=== PATIENT | female | born 1985 | race Caucasian/White ===

== ENCOUNTER 2018-09-18 08:11 | Day surgery (SDC) | payer MEDICAID ==
[2018-09-13 12:14] LABS: CLARITY,URINE CLEAR (Clear); COLOR,URINE STRAW (Yellow); GLUCOSE, URINE NEGATIVE (Neg); KETONES,URINE NEGATIVE (Neg); LEUKOCYTE ESTERASE ,URINE NEGATIVE (Neg); NITRITES, URINE NEGATIVE (Neg); OCCULT BLOOD,URINE NEGATIVE (Neg); PROTEIN,URINE NEGATIVE (Neg); UROBILINOGEN,URINE 0.2 E.U/dL (0.2-1.0)
[2018-09-13 12:16] LABS: BASOPHILS % (AUTO) 0.2 % (0-1); EOSINOPHILS # (AUTO) 0.1 X10'3 (0-0.9); EOSINOPHILS % (AUTO) 2.1 % (0-6); LYMPHOCYTES # (AUTO) 1.4 X10'3 (1.1-4.8); LYMPHOCYTES % (AUTO) 35.7 % (21-51); MEAN CORPUSCULAR HEMOGLOBIN 30.1 PG (27.0-31.0); MEAN CORPUSCULAR HGB CONC 33.2 g/dL (33.0-36.5); MEAN CORPUSCULAR VOLUME 90.5 FL (78-98); MEAN PLATELET VOLUME 8.3 FL (7.4-10.4); MONOCYTES # (AUTO) 0.2 X10'3 (0-0.9); MONOCYTES % (AUTO) 5.4 % (2-12); NEUTROPHILS # (AUTO) 2.2 X10'3 (1.8-7.7); NEUTROPHILS % (AUTO) 56.6 % (42-75); PRE OP HEMATOCRIT 41.6 % (35.0-45.0); PRE OP HEMOGLOBIN 13.8 g/dL (12.0-16.0); PRE OP PLATELET COUNT 199 X10'3 (140-440); RED CELL DISTRIBUTION WIDTH 13.9 % (11.5-14.5)
[2018-09-13 12:23] LABS: UA COLLECTION TYPE CLN CATCH MIDSTREAM
[2018-09-13 12:38] LABS: ALBUMIN 3.8 G/DL (3.4-5.0); ALBUMIN/GLOBULIN RATIO 1.2 (1.1-1.5); ALKALINE PHOSPHATASE 57 IU/L (46-116); BLOOD UREA NITROGEN 10 MG/DL (7-18); BUN/CREATININE RATIO 15.9 (6.6-38.0); CALCIUM 8.6 MG/DL (8.5-10.1); CHLORIDE 104 MMOL/L (99-107); CREATININE 0.63 MG/DL (0.40-0.90); PRE OP ALT 17 U/L (30-65); PRE OP ANION GAP 10 (8-16); PRE OP AST 8 U/L (10-37); PRE OP BILIRUB, TOTAL 0.2 MG/DL (0.0-1.0); PRE OP GLUCOSE 90 MG/DL (70-104); PRE OP SODIUM 138 MMOL/L (135-145); TOTAL CARBON DIOXIDE 24.4 MMOL/L (24-32); TOTAL PROTEIN 7.1 G/DL (6.4-8.2); eGFR > 90 ML/MIN
[2018-09-13 13:09] LABS: HCG SERUM QL NEGATIVE
[~2018-09-18] VITALS: Ht 170.2 cm; Wt 77.1 kg
[2018-09-18] VITALS (9 sets, daily range): BP systolic 111–136; BP diastolic 66–87
[~2018-09-18 08:11] MED LIST: ALPR0.5T8 PO; BIOT1POW2 PO; CETI-102 PO; CHOL100046 PO; HYDR-3973 PO; HYDR-4353 PO; LEVO175T7 PO; VITA-135 PO; ceFOXitin 2 GM ADDvantage bag 100 ML IV ONE; cefotetan 2gm/isosm dext IVPB 50 ML IV ONE; famotidine 20mg tablet PO ONE; ringers solution, lacted 1,000 ML IV SCH
[2018-09-18] MEDS ORDERED: LIDOcaine 1% (10mg/ml) 2ml vial ONE (08:22)
[2018-09-18] MEDS ORDERED: BUPIVAcaine/PF 2.5mg/ml (0.25%) 10ml vial ONE (08:34)
[2018-09-18] MEDS ORDERED: epiNEPHrine 1 mg/ml inj ONE (08:34)
[2018-09-18] MEDS ORDERED: neostigmine methylsulfate 1 MG/ML 10ml vial ONE (09:48)
[2018-09-18] MEDS ORDERED: sevoflurane 250ml liquid IH ONE (09:48)
[2018-09-18] MEDS ORDERED: glycopyrrolate 0.2mg/ml inj ONE (09:48)
[2018-09-18] MEDS ORDERED: fentaNYL/PF 50MCG/1 ML 2ML syringe ONE (09:57)
[2018-09-18] MEDS ORDERED: midazolam 2 mg/2 ml injection ONE (09:57)
[2018-09-18] MEDS ORDERED: rocuronium 10mg/ml inj IV ONE (10:00)
[2018-09-18] MEDS ORDERED: etomidate 2mg/ml inj. ONE (10:00)
[2018-09-18] MEDS ORDERED: ondansetron/PF 4mg/2ml inj ONE (10:04)
[2018-09-18] MEDS ORDERED: dexamethasone sod phosphate 4mg/ml inj. ONE (10:05)
[2018-09-18] MEDS ORDERED: ringers solution, lacted 1,000 ML IV SCH (10:32)
[2018-09-18] MEDS ORDERED: proCHLORperazine 10 MG/2 ml inj IV PRN (10:35)
[2018-09-18] MEDS ORDERED: hydrALAZINE 20mg/ml inj. IV PRN (10:35)
[2018-09-18] MEDS ORDERED: morphine 4 MG/ML inj SYRINge IV PRN ×2 (10:35)
[2018-09-18] MEDS ORDERED: enalaprilat dihydrate 2.5mg/2ml vial IV PRN (10:35)
[2018-09-18] MEDS ORDERED: fentaNYL/PF 50MCG/1 ML 2ML syringe IV PRN (10:35)
[2018-09-18] MEDS ORDERED: ondansetron/PF 4mg/2ml inj IV PRN (10:35)
[2018-09-18] MEDS ORDERED: proMETHazine 25mg rectal suppository RC PRN (10:35)
[2018-09-18] MEDS ORDERED: labetalol 20mg/4ml (5mg/ml) syringe IV ONE (10:48)
[2018-09-18] MEDS ORDERED: methylene blue (5mg/ml) 50mg/10ml ampul IV ONE (10:56)
--- NOTE | 2018-09-18 11:25 | NUR ---
Received from OR via BED, accompanied by Anesthesiologist DR ANDRES--- and report given by Anesthesiolgist. PATIENT A&OX4, DENIES PAIN, V/S WNL, NEUROVASCULAR CHECKS INTACT, 20G PIV, SCD ON, 2 DUODERM BONDED LAP SITES CDI TO ABDOMEN AND PERIPAD WITH SCANT OUTPUT
[2018-09-18] MEDS: fentaNYL/PF 50MCG/1 ML 2ML syringe IV PRN ×2 (11:43→11:47)
[2018-09-18] MEDS ORDERED: HYDROcodone/acetaminophen 10/325mg tab PO ONE (12:05)
--- NOTE | 2018-09-18 12:35 | NUR ---
Received from OR via BED, accompanied by Anesthesiologist DR LOVE-- and report given by Anesthesiolgist. PATIENT A&OX4, DENIES PAIN, V/S WNL, NEUROVASCULAR CHECKS INTACT, 20G PIV D/C, SCD OFF, DRESSING CDI.. I HAVE REVIEWED D/C INSTRUCTIONS WITH PATIENT AND FAMILY AND THEY HAVE VERBALIZED UNDERSTANDING. PATIENT D/C HOME WITH ALL BELONGINGS AND FAMILY GAVE TRANSPORT HOME.
== END 2018-09-18 12:35 | disposition home or self-care (01) ==
LOC: PAS 08:11
PROVIDERS: ATTEND Obstetrics & Gynecology Obstetrics
DX: D17.1 Benign lipomatous neoplasm of skin and subcutaneous tissue of trunk (principal); N83.8 Other noninflammatory disorders of ovary, fallopian tube and broad ligament; D64.9 Anemia, unspecified; I50.9 Heart failure, unspecified; E05.90 Thyrotoxicosis, unspecified without thyrotoxic crisis or storm; F41.9 Anxiety disorder, unspecified; Z79.899 Other long term (current) drug therapy; Z88.8 Allergy status to other drugs, medicaments and biological substances; Z98.890 Other specified postprocedural states; Z82.49 Family history of ischemic heart disease and other diseases of the circulatory system
CPT/HCPCS: 22900; 36415; 58350; 58662; 80053; 81003; 82948; 84703; 85025; 86885; 86900; 86901; 93005; J0171; J1100; J2250; J2270; J2405; J2710; J3010; J3490; J7120; A7000; J0694

== ENCOUNTER 2018-10-01 21:38 | Emergency (ER) | payer MEDICAID ==
[~2018-10-01] VITALS: Ht 170.2 cm; Wt 75.0 kg
[~2018-10-01 21:38] MED LIST changes: -ceFOXitin 2 GM ADDvantage bag 100 ML IV ONE; -cefotetan 2gm/isosm dext IVPB 50 ML IV ONE; -famotidine 20mg tablet PO ONE; -ringers solution, lacted 1,000 ML IV SCH
[2018-10-01] MEDS ORDERED: morphine 4 MG/ML inj SYRINge IV PRN (22:00)
[2018-10-01] MEDS ORDERED: normal saline 1000ML IV soln IVB ONE (22:00)
[2018-10-01] MEDS ORDERED: ondansetron/PF 4mg/2ml inj IV ONE (22:00)
[2018-10-01] MEDS ORDERED: iohexol 300mg/ml 100ml inj. ONE (22:06)
[2018-10-01 22:28] LABS: BASOPHILS % (AUTO) 0.1 % (0-1); EOSINOPHILS # (AUTO) 0.2 X10'3 (0-0.9); EOSINOPHILS % (AUTO) 3.1 % (0-6); HEMATOCRIT 42.4 % (35.0-45.0); HEMOGLOBIN 14.6 g/dl (12.0-16.0); LYMPHOCYTES # (AUTO) 2.8 X10'3 (1.1-4.8); LYMPHOCYTES % (AUTO) 46.7 % (21-51); MEAN CORPUSCULAR HEMOGLOBIN 30.5 PG (27.0-31.0); MEAN CORPUSCULAR HGB CONC 34.4 g/dL (33.0-36.5); MEAN CORPUSCULAR VOLUME 88.7 FL (78-98); MEAN PLATELET VOLUME 8.5 FL (7.4-10.4); MONOCYTES # (AUTO) 0.4 X10'3 (0-0.9); MONOCYTES % (AUTO) 6.2 % (2-12); NEUTROPHILS # (AUTO) 2.6 X10'3 (1.8-7.7); NEUTROPHILS % (AUTO) 43.9 % (42-75); PLATELET COUNT 237 X10'3 (140-440); RED BLOOD COUNT 4.78 X10'6 (4.20-5.60); RED CELL DISTRIBUTION WIDTH 13.3 % (11.5-14.5); WHITE BLOOD COUNT 5.9 X10'3 (4.5-11.0)
[2018-10-01 22:39] LABS: ALANINE AMINOTRANSFERASE 15 U/L (12-78); ALBUMIN 4.2 G/DL (3.4-5.0); ALBUMIN/GLOBULIN RATIO 1.3 (1.1-1.5); ALKALINE PHOSPHATASE 64 IU/L (46-116); ANION GAP 8 (8-16); ASPARTATE AMINO TRANSFERASE 9 U/L (10-37); BILIRUBIN,TOTAL 0.5 MG/DL (0.1-1.0); BLOOD UREA NITROGEN 7 MG/DL (7-18); BUN/CREATININE RATIO 9.9 (6.6-38.0); CALCIUM 8.9 MG/DL (8.5-10.1); CHLORIDE 104 MMOL/L (99-107); CREATININE 0.71 MG/DL (0.40-0.90); GLUCOSE 85 MG/DL (70-104); LIPASE 80 U/L (73-393); POTASSIUM 3.7 MMOL/L (3.5-5.1); SODIUM 138 MMOL/L (135-145); TOTAL CARBON DIOXIDE 26.4 MMOL/L (24-32); TOTAL PROTEIN 7.4 G/DL (6.4-8.2); eGFR > 90 ML/MIN
[2018-10-01 23:10] LABS: CLARITY,URINE CLEAR (Clear); COLOR,URINE YELLOW (Yellow); GLUCOSE, URINE NEGATIVE (Neg); KETONES,URINE NEGATIVE (Neg); LEUKOCYTE ESTERASE ,URINE NEGATIVE (Neg); NITRITES, URINE NEGATIVE (Neg); OCCULT BLOOD,URINE NEGATIVE (Neg); PH,URINE 6.5 (4.8-8.0); PROTEIN,URINE NEGATIVE (Neg); UROBILINOGEN,URINE 0.2 E.U/dL (0.2-1.0)
[2018-10-01 23:11] LABS: UA COLLECTION TYPE CLN CATCH MIDSTREAM
[2018-10-01 23:12] LABS: URINE HCG NEGATIVE (NEG)
[2018-10-01 23:31] LABS: URINE AMPHETAMINE SCREEN NEGATIVE (Neg); URINE BARBITUATE SCREEN NEGATIVE (Neg); URINE BENZODIAZEPINES SCREEN NEGATIVE (Neg); URINE CANNABINOID SCREEN POSITIVE (Neg); URINE COCAINE SCREEN NEGATIVE (Neg); URINE METHADONE SCREEN NEGATIVE (Neg); URINE OPIATE SCREEN POSITIVE (Neg); URINE PHENCYCLIDINE SCREEN NEGATIVE (Neg)
[2018-10-02] MEDS ORDERED: ketorolac trometh. 30mg/ml inj. IV ONE
[2018-10-02 00:41] VITALS: BP 135/81
== END 2018-10-02 00:42 | disposition home or self-care (01) ==
LOC: ER 21:39
DX: G89.18 Other acute postprocedural pain (principal); R10.32 Left lower quadrant pain; R05 Cough; F12.90 Cannabis use, unspecified, uncomplicated; I50.9 Heart failure, unspecified; E05.90 Thyrotoxicosis, unspecified without thyrotoxic crisis or storm; Z98.890 Other specified postprocedural states; Z88.4 Allergy status to anesthetic agent; Z88.8 Allergy status to other drugs, medicaments and biological substances; Z79.899 Other long term (current) drug therapy
CPT/HCPCS: 36415; 74177; 80053; 80305; 81003; 81025; 83690; 85025; 96374; 96375; 99284; J1885; J2270; J2405; J7030; Q9967